=== PATIENT | female | born 1940 | race Caucasian/White ===

== ENCOUNTER → 2018-01-12 | Outpatient (CLI) | payer OTHER ==
[~2018-01-12] MED LIST: APAP500 PO; CALCIUM 600 +1 EAC1 PO; COLACE100 MG PO; COUMADIN 5 MG TA5 M1 PO; ELEMENTAL CALC600 MG PO; EQL FLAXSEED O1 EACH PO; IRON325 PO; LANOXIN 0.120.125 M1 PO; LIPITOR20 MG PO; MAGNESIUM-ZINC PO; MAGNESIUM500 MG PO; OMEGA 3-6-9 11200 M1 PO; OMEGA-31000 M1 PO; PERCOCET PO; SORINE 80 MG TA80 M1 PO; TUMS PO; VITAMIN A8000 UNI1 PO; VITAMIN B-121000 MCG PO; VITAMIN B-12500 MCG PO; VITAMIN B-6100 MG PO; VITAMIN D1000 UNI1 PO; VITAMIN D32000 UNIT PO; VITAMIN E400 UNIT PO; VITAMIN E600 UNIT PO; VITAMINC500 PO
== END ==
LOC: M.CT 10:45
DX: G44.52 New daily persistent headache (NDPH) (principal); Z79.01 Long term (current) use of anticoagulants

== ENCOUNTER → 2018-08-15 | Outpatient (CLI) | payer OTHER ==
--- NOTE | 2018-08-15 13:02 | 2DMMODE ---
[place] [address] 2 D/M-MODE ECHOCARDIOGRAM Name: RYNE HER Room: [facility]#: [id number] Admission: 08/15/18 Attend Phys: Jagjit Duggan MD Discharge: Date of : 44 Date of Service: 08/15/18 1302 Report #: [id number] THIS REPORT FOR: //name// APPROVED REPORT Study performed: 08/15/2018 09:28:19 EXAM: Comprehensive 2D, Doppler, and color-flow Echocardiogram Patient Location: Out-Patient Status: routine BSA: 1.92 HR: 77 bpm BP: 126/68 mmHg Other Information Study Quality: Good Indications Aortic Valve Disease Atrial Fibrillation Aortic valve replacement 2D Dimensions IVSd: 13.26 (7-11mm) LVOT Diam: 20.58 (18-24mm) LVDd: 43.85 mm PWd: 10.48 (7-11mm) Ascending Ao: 27.90 (22-36mm) LVDs: 28.74 (25-40mm) Aortic Root: 24.47 mm Volumes Left Atrial Volume (Systole) LA ESV Index: 28.30 mL/m2 Aortic Valve AoV Peak Kenyon.: 2.19 m/s AO Peak Gr.: 19.15 mmHg LVOT Max P.83 mmHg AO Mean Gr.: 9.79 mmHg LVOT Mean P.45 mmHg LVOT Max V: 0.84 m/s AO V2 VTI: 42.24 cm LVOT Mean V: 0.56 m/s TALIA (VTI): 1.35 cm2 LVOT V1 VTI: 17.17 cm Mitral Valve MV Decel. Time: 140.89 ms MV E Max Kenyon.: 0.67 m/[place] [address] 2 D/M-MODE ECHOCARDIOGRAM Name: [facility]NE HER [id number] Admission: 08/15/18 Attend Phys: Jagjit Duggan MD Discharge: Date of : 44 Date of Service: 08/15/18 1302 Report #: [id number] MV PHT: 40.86 ms MVA (PHT): 5.38 cm2 TDI E/Lateral E': 5.15 E/Medial E': 5.58 Medial E' Kenyon.: 0.12 m/s Lateral E' Kenyon.: 0.13 m/s Pulmonary Valve PV Peak Kenyon.: 0.80 m/s PV Peak Gr.: 2.56 mmHg Tricuspid Valve RAP Estimate: 5.00 mmHg TR Peak Gr.: 18.58 mmHg RVSP: 23.58 mmHg PA Pressure: 23.58 mmHg Left Ventricle The left ventricle is normal size. There is normal LV segmental wall motion. There is normal left ventricular wall thickness. Left ventricular systolic function is normal. The left ventricular ejection fraction is within the normal range. LVEF is 55-60%. The left ventricular diastolic function is normal. Right Ventricle The right ventricle is normal size. The right ventricular systolic function is normal. Atria Left atrium is mildly dilated. Right atrium is mildly dilated. Aortic Valve Bioprosthetic aortic valve is present. No aortic regurgitation is present. There is no aortic valvular stenosis. Mitral Valve The mitral valve is normal in structure. Mild mitral regurgitation. No evidence of mitral valve stenosis. Tricuspid Valve The tricuspid valve is normal in structure. Mild tricuspid regurgitation. Pulmonic Valve The pulmonary valve is normal in structure. [place] [address] 2 D/M-MODE ECHOCARDIOGRAM Name: RYNE HER Room: [facility] [id number] Admission: 08/15/18 Attend Phys: Jagjit Duggan MD Discharge: Date of : 44 Date of Service: 08/15/18 1302 Report #: [id number] Great Vessels The aortic root is normal in size. IVC is normal in size and collapses >50% with inspiration. Pericardium There is no pericardial effusion. <Conclusion> LVEF is 55-60%. Left atrium is mildly dilated. Right atrium is mildly dilated. Bioprosthetic aortic valve is present. <ELECTRONICALLY SIGNED> By: Jagjit Duggan MD, FACC 08/15/181301 01 01 Jagjit Duggan MD, FACC /INF
== END ==
LOC: M.CRD 09:00
DX: Z95.2 Presence of prosthetic heart valve (principal)

== ENCOUNTER 2019-04-18 11:17 | Emergency (ER) | payer OTHER ==
[~2019-04-18] VITALS: Ht 167.6 cm; Wt 71.2 kg
[2019-04-18] MEDS ORDERED: PREDNISONE 20 M20 MG PO (11:48)
[2019-04-18 12:21] LABS: HEMATOCRIT 29.8 % (37.0-47.0); HEMOGLOBIN 9.7 gm/dL (12.0-15.0); MCH 29.1 pg (26.0-34.0); MCHC 32.6 g/dL (28.0-37.0); MCV 89.1 fL (80.0-100.0); MPV 8.3 fl. (7.2-11.1); NUCLEATED RBCS 0 /100WBC; PLATELET COUNT* 178 thou/uL (150-400); RBC 3.34 mil/uL (4.20-5.00); RDW-CV 20.8 % (10.5-14.5); WBC 9.6 thou/uL (4.0-11.0)
[2019-04-18 12:47] LABS: APTT 32.2 Seconds (25.0-31.3); INR 1.9; PROTIME 19.2 Seconds (9.20-11.50)
[2019-04-18 12:51] LABS: ANION GAP 11 mmol/L (7-16); BUN 15 mg/dL (7-18); CALCIUM 8.7 mg/dL (8.5-10.1); CHLORIDE 103 mmol/L (98-107); CO2 27 mmol/L (21-32); CREATININE 0.7 mg/dL (0.6-1.3); GLUCOSE 82 mg/dL (70-99); POTASSIUM 3.1 mmol/L (3.5-5.1); SODIUM 141 mmol/L (136-145)
[2019-04-18 12:57] LABS: ALBUMIN 2.5 g/dL (3.4-5.0); ALKALINE PHOSPHATASE 86 U/L (46-116); CK-MB MASS 0.9 ng/mL (<0.5-3.6); LIPASE 214 U/L (73-393); MAGNESIUM 1.4 mg/dL (1.8-2.4); NT-PRO BRAIN NAT PEPTIDE 1634 pg/mL (<300); SGOT 25 U/L (15-37); SGPT 31 U/L (30-65); TOTAL BILIRUBIN 0.6 mg/dL (<0.1-1.0); TOTAL PROTEIN 5.2 g/dL (6.4-8.2); TROPONIN-I LEVEL <0.06 ng/mL (<0.06)
[2019-04-18 13:00] LABS: ABSOLUTE LYMPHOCYTES 0.4 thou/uL (0.8-5.3); ABSOLUTE MONOCYTES 0.2 thou/uL (0.0-1.2); ANISOCYTOSIS 1+; PLATELET ESTIMATE ADEQUATE
[2019-04-18 13:08] VITALS: BP 101/62
--- NOTE | 2019-04-18 17:21 | EKG ---
[place] [address] ELECTROCARDIOGRAM REPORT Name: HER,RYNE Zulema Room: [facility]#: [id number] Admission: 04/18/19 Attend Phys: Discharge: 04/18/19 Date of : 44 Report #: [id number] THIS REPORT FOR: //name// [facility] ED Test Date: 2019-04-18 Test Time: 11:43:05 Pat Name: RYNE HER Department: Room: Gender: F Web Database Developer: : 1940 Requested By: Crow Campuzano Order Number: [id number] MD: Sherif Ayala Measurements Intervals [place] Rate: 99 P: VT: QRS: 18 QRSD: 111 T: 5 QT: 418 QTc: 537 Interpretive Statements Atrial fibrillation Incomplete right bundle-branch block Nonspecific repol abnormality, anterior leads Prolonged QT interval Compared to ECG 08/24/2014 08:28:51 RSR' in V1 or V2 now present Prolonged QT interval now present Sinus rhythm no longer present Electronically Signed On 04-18-2019 17:21:30 CDT by Sherif Ayala [email or web address] <ELECTRONICALLY SIGNED> By: Sherif Ayala MD, FACC 04/18/19 1721 1143 1143 Sherif Ayala MD, [facility] /EPI
== END 2019-04-18 13:09 | disposition home or self-care (01) ==
LOC: M.ERS 11:17
PROVIDERS: Family Medicine
DX: R53.1 Weakness (principal); R60.0 Localized edema; E78.00 Pure hypercholesterolemia, unspecified; Z88.8 Allergy status to other drugs, medicaments and biological substances; Z90.710 Acquired absence of both cervix and uterus

== ENCOUNTER → 2019-11-19 | Outpatient (CLI) | payer OTHER ==
[~2019-11-19] MED LIST changes: +PREDNISONE 20 M20 MG PO
== END ==
LOC: M.ULTRA 11:30
DX: I65.23 Occlusion and stenosis of bilateral carotid arteries (principal)